=== PATIENT | male | born 1955 | race Two or more races ===

== ENCOUNTER 2025-03-10 16:30 | Emergency (ER) | payer OTHER ==
[~2025-03-10] VITALS: Ht 165.1 cm; Wt 77.1 kg
[2025-03-10] MEDS ORDERED: PREDNISONE10 M2 PO (17:43)
[2025-03-10] MEDS ORDERED: IRBESARTAN150 MG PO (17:43)
[2025-03-10] MEDS ORDERED: MESALAMINE800 MG PO (17:43)
[2025-03-10] MEDS ORDERED: ROSUVASTATIN CAL5 MG PO (17:44)
[2025-03-10] MEDS ORDERED: KETOROLAC TROMETHAMINE 30 MG VIAL IV ONE (18:45)
[2025-03-10] MEDS ORDERED: FAMOtidine 10 MG/ML (4ML VIAL) IV ONE (18:45)
[2025-03-10] MEDS ORDERED: CIPROFLOXACIN IN 5 % DEXTROSE 400 MG/200 ML PIGGYBAG IV ONE ×2 (18:45→19:05)
[2025-03-10] MEDS ORDERED: KETOROLAC TROMETHAMINE 30 MG VIAL ONE (19:04)
[2025-03-10] MEDS ORDERED: FAMOTIDINE/PF 20 MG/2 ML VIAL ONE (19:05)
[2025-03-10 19:35] LABS: BASO % 0.6 % (0.1-1.2); EOS # 0.10 (0.04-0.54); EOS % 0.7 % (0.7-7.0); LYMPH # 1.70 (1.18-3.74); LYMPH % 11.8 % (19.3-53.1); MEAN PLATELET VOLUME 8.90 fl (9.4-12.4); MONO # 1.06 (0.24-0.82); MONO % 7.3 % (4.7-12.5); NEUT # 11.42 (1.56-6.13); NEUT % 79.0 % (34.0-71.1); RED CELL DISTRIBUTION WIDTH 16.1 % (11.6-14.4)
[2025-03-10 20:00] LABS: ALT/SGPT 21.0 U/L (12-78); AST/SGOT 18.0 U/L (15-37); BILIRUBIN TOTAL 0.52 mg/dL (0.3-1.2); BUN CREA RATIO 10.0 (7.0-25.0); CREATININE SERUM 1.03 mg/dL (0.70-1.30); GFR 71.39; GLOBULINA 4.3 G/DL (2.4-3.5); GLUCOSE FASTING 96.0 mg/dL (65-100); OSMOLALITY SERUM 286.0 MOSM/KG (275-295)
[2025-03-10 20:59] LABS: INR 1.08
[2025-03-10 21:13] LABS: URINE APPEARANCE Clear; URINE BILIRRUBIN Negative (NEGATIVE); URINE BLOOD Negative; URINE COLOR Yellow; URINE GLUCOSE Negative (NEGATIVE); URINE KETONE Negative (NEGATIVE); URINE LEUKOCYTE Negative; URINE NITRATE Negative; URINE UROBILINOGEN 0.2 E.U./dl
[2025-03-10 21:18] LABS: URINE BACTERIA 9.5 uL (0.0-1933); URINE EPITHELIAL CELLS 8.6 uL (0.0-38.8); URINE RBC 3.9 uL (0.0-20.8); URINE WBC 19.3 uL (0.0-23.2)
[2025-03-10 21:25] LABS: URINE CAST 0.14 uL (0.0-1.40); URINE PROTEIN 100 (NEGATIVE)
[2025-03-10] MEDS ORDERED: CIPRO500 MG PO (22:06)
[2025-03-10] MEDS ORDERED: PEPCID AC20 MG PO (22:06)
[2025-03-10] MEDS ORDERED: PROBIOTIC1 EAC2 PO (22:06)
[2025-03-10] MEDS ORDERED: METRONIDAZOLE500 MG PO (22:06)
[2025-03-10] MEDS ORDERED: LEVSIN/SL0.125 MG SL (22:06)
== END 2025-03-10 22:33 | disposition home or self-care (01) ==
LOC: ER 16:30
PROVIDERS: General Practice
DX: R10.32 Left lower quadrant pain (principal); R10.9 Unspecified abdominal pain; I10 Essential (primary) hypertension; E11.9 Type 2 diabetes mellitus without complications; Z88.0 Allergy status to penicillin
CPT/HCPCS: 36415; 74176; 96365; 99284; J0744; J1885; J3490